=== PATIENT | male | born 1985 | race Hispanic/Latino ===

== ENCOUNTER 2019-08-12 11:29 | Emergency (ER) | payer SELFPAY ==
--- NOTE | 2019-08-12 11:46 | RAD ---
EXAM: Chest 2 views: HISTORY: Cough COMPARISON: None. FINDINGS: There is a normal-sized cardiomediastinal silhouette. There is no evidence of consolidation, mass, or pleural effusion. The bones are unremarkable. IMPRESSION: No evidence of acute cardiopulmonary disease
== END 2019-08-12 12:43 | disposition home or self-care (01) ==
LOC: ERS 11:29
DX: J06.9 Acute upper respiratory infection, unspecified (principal)
CPT/HCPCS: 71046

== ENCOUNTER 2023-08-20 08:53 | Emergency (ER) | payer SELFPAY | END 2023-08-20 10:48 | disposition home or self-care (01) | LOC: ERS 08:53 | DX: L03.317 Cellulitis of buttock (principal) | CPT/HCPCS: 99283 ==